=== PATIENT | male | born 1965 | race African-American/Black ===

== ENCOUNTER 2017-09-04 13:30 | Emergency (ER) | payer SELFPAY ==
[2017-09-04 13:31] VITALS: BP 171/96; PULSE 72; RESP 12; TEMP 36.7; O2SAT 95; BMI 26.3
--- NOTE | 2017-09-04 13:52 | CT_ITS ---
STUDY: CT ABDOMEN AND PELVIS WITH CONTRAST REASON FOR EXAM: Male, 52 years old. Diffuse abdominal pain. RADIATION DOSAGE (If Supplied By Facility): CTDIvol = ( 10.24 ) mGy, DLP = ( 575.42 ) mGycm TECHNIQUE: Transaxial images were obtained from the dome of the diaphragm to the symphysis pubis without oral contrast. 100CC ml of Isovue 250 contrast was administered. Sagittal and coronal images were reconstructed. Individualized dose optimization techniques were used for this CT. COMPARISON: None. FINDINGS: The visualized lung bases are unremarkable. The visualized portions of the heart are within normal limits. Normal liver. Normal gallbladder and extrahepatic biliary system. Normal spleen. Normal pancreas. Normal bilateral adrenal glands. Normal right kidney. Normal left kidney. There is a small hiatal hernia. Normal small intestine. Normal colon. The appendix is visualized and appears normal. There is scattered atherosclerotic calcification of the abdominal aorta, without a demonstrated aneurysm. Normal inferior vena cava. There is borderline retroperitoneal lymphadenopathy with enlarged nodes no greater than 10mm in the short axis diameter. Normal urinary bladder. Small bilateral benign appearing axillary lymph nodes. There is a small umbilical hernia containing fat. Normal osseous structures. CT/Abdomen/Pelvis W IV Cont ONLY IMPRESSION: Normal enhanced CT of the abdomen and pelvis. Electronically Signed: Luther Grande MD at 14:59 EDT Tel [phone], Service support ,
[2017-09-04 14:04] LABS: Absolute Lymphocyte Count 3.07 X10^3/ul (0.83-4.51); Absolute Neutrophil Count 4.9 X10^3/uL (2.0-7.7); Basophil# 0.03 X10^3/uL; Basophil% 0.3 % (0-1); Eosinophil# 0.18 X10^3/uL; Hematocrit 45.5 % (40-54); Hemoglobin 15.4 g/dl (13.0-16.5); Lymphocyte # 3.07 X10^3/ul (4.0); Lymphocyte % 34.4 % (19-41); Mean Corp Hgb Conc 33.8 g/gl (32-36); Mean Corpuscular Hgb 34.3 pg (27.0-32.0); Mean Corpuscular Volume 101.3 fL (80-94); Mean Platelet Vol. 9.9 fl (6.2-12.0); Monocyte# 0.69 X10^3/uL; Monocyte% 7.7 % (0-10); Neutrophil # 4.93 X10^3/uL (2.7-7.7); Neutrophil % 55.4 % (47-70); Platelet Count 332 K/mm3 (150-450); RBC Distribution Width CV 12.4 % (11.6-14.6); RBC Distribution Width SD 45.6 fl (35.1-43.9); Red Blood Count 4.49 M/mm3 (4.6-6.2); White Blood Count 8.9 K/mm3 (4.4-11.0)
[2017-09-04 14:06] LABS: Bacteria 0 SEEN /hpf (None Seen); Color, Urine Yellow (Yellow); Glucose, Dipstick Normal (Normal); Ketone-Dipstick Negative (Negative); Leukocyte Esterase-Dipstick 25 /ul (Negative); Mucous, Urine 0 SEEN /hpf (<or=2+); Nitrite-Dipstick Negative (Negative); Occult Blood-Urine 25 /ul (Negative); POSITIVE COUNT NO; POSITIVE DIFFERENTIAL NO; POSITIVE MORPHOLOGY NO; Protein-Dipstick 15 mg/dl (Negative); Red Blood Cells-Urine 0 SEEN /hpf (0-5); Squamous Epithelial Cells - UA 0 SEEN /hpf (0-5); Urine Bilirubin Dipstick Negative (Negative); Urine Clarity Clear (Clear); Urine Urobilinogen Normal (Normal)
[2017-09-04 14:12] LABS: AST(SGOT) 19 U/L (15-37); Alanine Aminotransfer ALT/SGPT 24 U/L (16-61); Albumin, Serum 3.9 g/dL (3.2-5.0); Alkaline Phosphatase 82 U/L (45-117); Anion Gap 3 (5-15); BUN 9 mg/dL (7-18); BUN/Creat Ratio 7.4 RATIO (10-20); Bilirubin, Direct 0.11 mg/dL (0.00-0.30); Chloride 106 mmol/L (98-107); Creatinine, Serum 1.22 mg/dL (0.70-1.30); EST Glomerular Filtration Rate 67 mL/min (>60); Est Glom Filt Rate - Afr Amer 81 mL/min (>60); Estimated Creatinine Clearance 67.73 ml/min; Globulin 4.1 g/dL (2.2-4.2); Glucose 104 mg/dL (74-106); Lipase 197 U/L (73-393); Potassium 4.4 mmol/L (3.5-5.1); Sodium Level 138 mmol/L (136-145)
[2017-09-04] MEDS: 0.9% Normal Saline 1,000 ML 1000 ML IV (14:16)
[2017-09-04] MEDS: Ondansetron 4 MG/2 ML Vial IV (14:16)
[2017-09-04] MEDS: Morphine 4 MG/ML Syringe IV (14:16)
[2017-09-04 14:24] LABS: White Blood Cells 0-5 SEEN /hpf (0-5)
--- NOTE | 2017-09-04 15:27 | ED.DCSUM_ITS ---
- ER Visit Summary Date of Service: 09/04/17 Chief Complaint: Abdominal pain History of Present Illness: The patient is a 52 M history of peptic ulcer disease 2.0. And no prior abdominal surgeries. States he has had abdominal pain burning for the last 4 days. Denies any nausea, vomiting or diarrhea. No melena. No fever. No back pain. Physical Examination: Well-appearing middle-age male. Vital signs are stable afebrile. He does not look septic or toxic. HEENT exam unremarkable. Neck nontender. Lungs clear to auscultation bilaterally. Heart regular rhythm no murmur. Abdomen is soft diffusely tender. Nondistended normal bowel sounds. No peritoneal signs. No masses. No signs of obstruction. No pulsatile mass. No specific right upper or right lower quadrant tenderness. No signs of trauma. Moving all 4 extremities. No edema. Neurologically he is awake and alert with no focal motor deficits. Test Results: CBC normal with a white count 8. Normal H&H. BMP normal. Liver enzymes normal. Lipase normal. UA normal. Emergency Department Course and Treatment: Exam doing well at 1524. His abdominal exam is completely benign. Currently he is eating a sloppy Sumit and potato chips. I went over all test results to him. He is comfortable being discharged home. He will be written for Nexium for possible pain for gastritis. He was also instructed to decrease his alcohol consumption. Treatment Plan: [] Disposition: Discharge Impression: Acute abdominal pain uncertain etiology This note was generated with [employer] dictation software. It may contain incorrect words, spelling, and punctuation that were not noted in review of the chart prior to signing ED Disposition - Plan for ED Patient: Chief Complaint: Abd Pain Referrals: Janusz Gruber MD [Primary Care Provider] -
--- NOTE | 2017-09-04 15:27 | ED.DEP ---
ED Disposition - Plan for ED Patient: Disposition: Home or Assisted Living Chief Complaint: Abd Pain Instructions: ED Abdominal Pain Unkn Cause Prescriptions: Esomeprazole Mag Trihydrate [Nexium] 20 mg PO DAILY #30 cap Referrals: Janusz Gruber MD [Primary Care Provider] - 1 Week Additional Instructions: Use Nexium 1 he will may use up to 1 pill twice a day. Decrease your alcohol consumption because that would make your stomach burning and pain worse. Call follow-up your primary care physician in 1 week.
[2017-09-04 15:30] VITALS: BP 171/97; PULSE 68; RESP 15; O2SAT 96
== END 2017-09-04 16:02 | disposition home or self-care (01) ==
PROVIDERS: Emergency Provider Emergency Medicine; Family Provider Family Medicine; PCP Family Medicine
DX: R10.9 Unspecified abdominal pain (principal); R19.7 Diarrhea, unspecified; Z72.0 Tobacco use; Z79.899 Other long term (current) drug therapy; Z87.11 Personal history of peptic ulcer disease
CPT/HCPCS: 74177; 80048; 80076; 81001; 83690; 85025; 96361; 96374; 96375; 99284; J7030; Q9967; A4216; J2405

== ENCOUNTER 2019-04-09 04:43 | Emergency (ER) | payer SELFPAY ==
[2019-04-09 04:44] VITALS: BP 182/120; PULSE 75; PULSE 88; RESP 24; RESP 26; TEMP 36.9; O2SAT 97; O2SAT 98; BMI 25.7
--- NOTE | 2019-04-09 04:54 | RAD_ITS ---
STUDY: X-RAY CHEST REASON FOR EXAM: Male, 54 years old. Chest pain x2 days left thigh, shortness of breath TECHNIQUE: Single AP portable view of the chest. COMPARISON: 02/02/2016. FINDINGS: There are areas of hyperinflation. There is no focal parenchymal abnormality. There is no demonstrated pneumothorax. The lungs are clear and expanded. There is no demonstrated pleural abnormality. Normal size heart. Normal mediastinum and robin. Normal visualized pulmonary arteries. Normal visualized aortic arch and descending thoracic aorta. Normal visualized thoracic spine. Normal visualized ribs, clavicles, and shoulders. There is no demonstrated abnormality of the visualized soft tissue structures of the upper abdomen. RAD/Chest 1 View (Portable) IMPRESSION: Areas of hyperinflation. No pulmonary edema, congestive heart failure or confluent pneumonia. Electronically Signed: Zena Marie MD at 5:32 EST , Service support ,
--- NOTE | 2019-04-09 04:54 | EKG12_ITS ---
Test Reason : CP Blood Pressure : / mmHG Vent. Rate : 071 BPM Atrial Rate : 071 BPM P-R Int : 160 ms QRS Dur : 084 ms QT Int : 392 ms P-R-T Axes : 073 002 011 degrees QTc Int : 425 ms Normal sinus rhythm with sinus arrhythmia Voltage criteria for left ventricular hypertrophy Early repolarization Abnormal ECG Confirmed by BRITTA COLEMAN, KAREN ([id number]), scientific publications editor EDWARD RAMON ([id number]) on 04/12/2019 9:53:35 AM Referred By: BB Confirmed By:KAREN CALLEJAS MD
[2019-04-09 04:56] VITALS: BP 186/93; PULSE 72; RESP 19; O2SAT 98
[2019-04-09 05:00] LABS: Absolute Lymphocyte Count 2.77 X10^3/uL (0.83-4.51); Absolute Neutrophil Count 4.5 X10^3/uL (2.0-7.7); Basophil# 0.09 X10^3/uL; Basophil% 0.9 % (0-1); Eosinophil# 1.51 X10^3/uL; Eosinophils% 15.4 % (0-5); Hematocrit 40.5 % (40-54); Lymphocyte # 2.77 X10^3/ul (4.0); Lymphocyte % 28.2 % (19-41); Mean Corp Hgb Conc 34.6 g/dL (32-36); Mean Corpuscular Hgb 34.4 pg (27.0-32.0); Mean Corpuscular Volume 99.5 fL (80-94); Mean Platelet Vol. 9.7 fl (6.2-12.0); Monocyte# 0.87 X10^3/uL; Monocyte% 8.9 % (0-10); NRBC Flagged by Analyzer 0 % (0-5); Neutrophil # 4.53 X10^3/uL (2.7-7.7); Neutrophil % 46.1 % (47-70); Platelet Count 309 K/mm3 (150-450); RBC Distribution Width CV 11.8 % (11.6-14.6); RBC Distribution Width SD 43.1 fl (35.1-43.9); Red Blood Count 4.07 M/mm3 (4.6-6.2); White Blood Count 9.8 K/mm3 (4.4-11.0)
[2019-04-09 05:06] LABS: Prothrombin Time (Protime)PT. 13.3 SECONDS (11.7-14.9)
[2019-04-09 05:17] LABS: Anion Gap 7 (5-15); BUN 12 mg/dL (7-18); BUN/Creat Ratio 13.2 RATIO (10-20); Calcium,Total 8.6 mg/dL (8.5-10.1); Chloride 108 mmol/L (98-107); Creatinine, Serum 0.91 mg/dL (0.70-1.30); EST Glomerular Filtration Rate 93 mL/min (>60); Est Glom Filt Rate - Afr Amer 113 mL/min (>60); Estimated Creatinine Clearance 88.78 ml/min; Glucose 104 mg/dL (74-106); Potassium 3.7 mmol/L (3.5-5.1); Sodium Level 139 mmol/L (136-145)
--- NOTE | 2019-04-09 05:19 | ED.DCSUM_ITS ---
History of Present Illness Chief Complaint: Chest Pain Informant: Patient Onset: Hours - 7 Activity at onset: Exertion - intercourse Timing: Continuous Quality: Sharp Location: Left Chest Current Severity: Moderate Maximum Severity: Moderate Worsened By: Movement of Torso, Breathing, Coughing Relieved By: - - breathing easy Associated Symptoms: Dyspnea, Cough - occasionally productive x 2-3 days. Negative for: Nausea, Vomiting, Diaphoresis, Fever, Lightheadedness, Pa lpitations Narrative: Patient states he noticed this left-sided anterior chest discomfort suddenly tonight while having intercourse with his significant other. Made him feel little short of breath and he notes that it is pleuritic and also is worse with certain movements. No history of DVT or PE, no recent leg pain or swelling, recent long travel, hospitalization, surgery, or other immobilization. Past Medical History - Allergies and Home Meds Allergies/Adverse Reactions: Allergies No Known Allergies Allergy (Verified 04/09/19 04:46) Primary Care Physician: Janusz Gruber MD [Primary Care Provider] - Lives: Spouse/ Significant Other Smoking Status: Current every day smoker Drugs: None Review of Systems General: Denies: Chills, Fever, Sweats Eyes: Denies: Visual changes - bilaterally, Diplopia ENT: Denies: Rhinorrhea, Sore throat Cardiovascular: Reports: Chest pain. Denies: Palpitations Respiratory: Reports: Dyspnea. Denies: Cough, Dyspnea on exertion Gastrointestinal: Denies: Abdominal pain, Nausea, Vomiting, Diarrhea, Melena, Hematochezia Genitourinary: Denies: Dysuria, Hematuria, Frequency Musculoskeletal: Denies: Back pain, Swelling, Extremity Pain Skin: Denies: Rash, Wounds Neurological: Denies: Headache, Weakness, Numbness Physical Exam Vital Signs/Narrative: Vital Signs Temp Pulse Resp BP Pulse Ox 04/09/19 04:56 72 19 H 186/93 H 98 04/09/19 04:44 98.5 F 88 24 H 182/120 H 98 Inital Vital Signs reviewed: Yes General: Well nourished, Well developed, No Acute Distress Head: Normocephalic, Atraumatic Eyes: Perrl, EOMI ENT: Moist mucous membranes, No rhinorrhea Neck: Supple, Nontender Cardiovascular: Regular rate, Regular rhythm, No murmurs Respiratory: No distress, CTA bilaterally, Chest tenderness - Possibly mild point tenderness in intercostal musculature, left midclavicular line, just below pectoralis muscle. Although there is mild tenderness, patient states this does not necessarily reproduce the pain to the degree that he does when he takes a deep breath. No crepitance or subcutaneous emphysema. Equal breath sounds bilaterally. Abdomen: Soft, Nontender, Nondistended, Normal bowel sounds Back: Nontender, Normal Inspection Extremities: Nontender, No edema. Negative for: Calf Tenderness Skin: Normal color, No rash, No Trauma Neurological: Alert, Oriented x3, Cranial nerves II-XII grossly intact, Normal Strength, Normal Sensation Psychological: Normal affect, Normal Mood Diagnostic/Tx/Re-eval Impressions Chest X-Ray 04/09/19 04:54 IMPRESSION: Areas of hyperinflation. No pulmonary edema, congestive heart failure or confluent pneumonia. Electronically Signed: Zena Marie MD at 5:32 EST , Service support , 04/09/19 04:54 Chest 1 View (Portable) [RAD] Stat Laboratory Results 04/09/19 04/09/19 04/09/19 04:50 04:50 04:50 WBC 9.8 RBC 4.07 L Hgb 14.0 Hct 40.5 MCV 99.5 H MCH 34.4 H MCHC 34.6 RDW Std Deviation 43.1 RDW Coeff of Yusra 11.8 Plt Count 309 MPV 9.7 Immature Gran % (Auto) 0.500 Neut % (Auto) 46.1 L Lymph % (Auto) 28.2 [place] % (Auto) 8.9 Eos % (Auto) 15.4 H Baso % (Auto) 0.9 Absolute Neuts (auto) 4.5 Absolute Lymphs (auto) 2.77 Nucleated RBC % 0 PT 13.3 INR 1.0 D-Dimer Quant (PE/DVT) Sodium 139 Potassium 3.7 Chloride 108 H Carbon Dioxide 24.0 Anion Gap 7 BUN 12 Creatinine 0.91 Estim Creat Clear Calc 88.78 Est GFR (MDRD) Af Amer 113 Est GFR (MDRD) Non-Af 93 BUN/Creatinine Ratio 13.2 Glucose 104 Calcium 8.6 Troponin I < 0.015 04/09/19 04:50 WBC RBC Hgb Hct MCV MCH MCHC RDW Std Deviation RDW Coeff of Yusra Plt Count MPV Immature Gran % (Auto) Neut % (Auto) Lymph % (Auto) [place] % (Auto) Eos % (Auto) Baso % (Auto) Absolute Neuts (auto) Absolute Lymphs (auto) Nucleated RBC % PT INR D-Dimer Quant (PE/DVT) < 0.27 L Sodium Potassium Chloride Carbon Dioxide Anion Gap BUN Creatinine Estim Creat Clear Calc Est GFR (MDRD) Af Amer Est GFR (MDRD) Non-Af BUN/Creatinine Ratio Glucose Calcium Troponin I Treatment: Toradol IV Repeat Eval: Pain Free - Medical Decision Making Work-up is negative including d-dimer and chest x-ray which shows no pneumothorax, he does not have suspicion for pericardial effusion here, and he feels much better after Toradol. This makes chest wall etiology most more likely. Supportive care advised and given a prescription for Naprosyn. ED Disposition - Plan for ED Patient: Disposition: Home or Assisted Living Diagnosis: Strain of chest wall Instructions: Chest Wall Strain Prescriptions: Naproxen [Naprosyn] 500 mg PO BID PRN #20 tab Prescription Printed Referrals: Janusz Gruber MD [Primary Care Provider] - 1 Week if not improving
[2019-04-09 05:27] VITALS: PULSE 71; RESP 20
[2019-04-09] MEDS: Ipratropium/Albuterol Sulfate 3 ML AMPUL.NEB INHALATION (05:27)
[2019-04-09] MEDS: Ketorolac 30 MG/ML Syringe IV (05:36)
[2019-04-09 05:43] LABS: D-Dimer Quantitative (DVT/PE) < 0.27 FEU/ug/m (0.27-0.49)
[2019-04-09 06:28] VITALS: PULSE 81; RESP 16; O2SAT 100
== END 2019-04-09 06:37 | disposition home or self-care (01) ==
PROVIDERS: Emergency Provider Emergency Medicine; Family Provider Family Medicine; PCP Family Medicine
DX: S29.011A Strain of muscle and tendon of front wall of thorax, initial encounter (principal); R05 Cough; X58.XXXA Exposure to other specified factors, initial encounter; Y93.9 Activity, unspecified; Y92.9 Unspecified place or not applicable; Y99.9 Unspecified external cause status; F17.200 Nicotine dependence, unspecified, uncomplicated
CPT/HCPCS: 71045; 80048; 84484; 85025; 85379; 85610; 93005; 94640; 96374; 99285

== ENCOUNTER 2019-08-19 14:02 | Emergency (ER) | payer MEDICAID, SELFPAY ==
[2019-08-19 14:02] VITALS: BP 156/90; PULSE 83; RESP 16; TEMP 36.4; O2SAT 98; BMI 26.6
--- NOTE | 2019-08-19 14:21 | ED.DCSUM_ITS ---
History of Present Illness Chief Complaint: Lower Extremity Injury Detail of Chief Complaint: Right foot pain Informant: Patient Onset: Yesterday Context: Gradual Onset Current Severity: Moderate Maximum Severity: Moderate Narrative: Patient presents with right foot pain. He states he started noticing some mild pain last night but significantly worse when he woke this morning. He does not remember an injury. He points to the distal foot over the fourth and fifth metatarsals and describing the area of pain. No open wounds. No history of gout. - Past Medical History (1) Peptic ulcer Status: Chronic Past Medical History - Allergies and Home Meds Allergies/Adverse Reactions: Allergies No Known Allergies Allergy (Verified 08/19/19 14:04) Primary Care Physician: Janusz Gruber MD [Primary Care Provider] - Prior records reviewed: Yes Smoking Status: Current every day smoker Review of Systems General: Denies: Chills, Fever Eyes: Denies: Visual changes - bilaterally ENT: Denies: Bilateral ear pain Cardiovascular: Denies: Chest pain Respiratory: Denies: Dyspnea, Cough Gastrointestinal: Denies: Abdominal pain, Nausea, Vomiting, Diarrhea Musculoskeletal: Reports: Extremity Pain Skin: Denies: Rash Neurological: Denies: Headache Allergy: Denies: Uticaria Physical Exam Vital Signs/Narrative: Vital Signs Temp Pulse Resp BP Pulse Ox 08/19/19 14:02 97.6 F L 83 16 156/90 H 98 Inital Vital Signs reviewed: Yes General: Well nourished, Well developed Head: Normocephalic ENT: Moist mucous membranes Neck: Supple Cardiovascular: Regular rate, Regular rhythm Respiratory: No distress, CTA bilaterally Abdomen: Soft, Nontender Extremities: - - She does have reproducible tenderness over the distal fourth and fifth metatarsals. Pain seems to be along the tendon sheath. He does have pain with flexion of his toes. No open wounds are noted. Normal sensation and cap refill. Neurological: Alert, Oriented x3 Psychological: Normal affect Diagnostic/Tx/Re-eval Impressions Foot X-Ray 08/19/19 15:04 IMPRESSION: Normal x-ray examination of the foot. Electronically Signed: Luther Grande, at 15:17 EDT , Service support , 08/19/19 15:04 Foot min 3 Views [RAD] Stat - Medical Decision Making I believe the patient has tendinitis as he has focal tenderness over the tendons. There is no overlying skin change. No open wounds. Patient is given a dose of prednisone and naproxen here. He is to continue his Prilosec and will be given a short burst of steroid to help with pain. ED Disposition - Plan for ED Patient: Disposition: Home or Assisted Living Diagnosis: Tendinitis Instructions: Treating Tendonitis of the Foot Prescriptions: Prednisone [Deltasone] 40 mg PO DAILY #10 tab Transmission Status: Pending to [facility] #30 Referrals: Janusz Gruber MD [Primary Care Provider] - 1 Week
[2019-08-19] MEDS: Naproxen 500 MG Tablet PO (14:54)
[2019-08-19] MEDS: predniSONE 20 MG Tablet 60 MG PO (14:54)
--- NOTE | 2019-08-19 15:04 | RAD_ITS ---
STUDY: X-RAY - RIGHT FOOT CLINICAL: Male, 54 years old. Right foot pain, patient denies injury TECHNIQUE: 3 view(s) of the foot. COMPARISON: None. FINDINGS: Normal talus, calcaneus, and tarsal bones. Normal visualized subtalar, talonavicular, calcaneocuboid, tarsal and tarsometatarsal articulations. Normal metatarsi. Normal metatarsophalangeal joint of the great toe. Normal tibial and fibular sesamoid bones. Normal interphalangeal joint of the great toe. Normal phalanges of the great toe. Normal second through fifth metatarsophalangeal joints. Normal interphalangeal joints and phalanges of the lesser toes. The soft tissue structures are unremarkable. RAD/Foot min 3 Views IMPRESSION: Normal x-ray examination of the foot. Electronically Signed: Luther Grande, at 15:17 EDT , Service support ,
[2019-08-19 15:54] VITALS: RESP 18
== END 2019-08-19 15:55 | disposition home or self-care (01) ==
PROVIDERS: Emergency Provider Emergency Medicine; PCP Family Medicine
DX: M77.9 Enthesopathy, unspecified (principal); F17.200 Nicotine dependence, unspecified, uncomplicated
CPT/HCPCS: 73630; 99283